=== PATIENT | female | born 1985 | race Caucasian/White ===

== ENCOUNTER → 2018-04-12 07:00 | Outpatient (CLI) | payer BC, SELFPAY ==
--- NOTE | 2018-04-12 11:48 | PFT ---
INTRODUCTION: The patient is a 32-year-old female that presents for pulmonary function testing secondary to a diagnosis of asthma. Respiratory therapy reports good patient effort. Bronchodilators were used during testing. INTERPRETATION: Forced expiration spirometry demonstrates no evidence of a large airways obstructive ventilatory defect. There was no significant response to aerosolized bronchodilators, based upon strict ATS criteria. Spirograms are of good quality and plateau normally. The respiratory flow volume loop reveals some flattening of the inspiratory limb, which could be suggestive of a variable extrathoracic obstruction, like vocal cord pathology. Body plethysmography was performed and reveals lung volumes to be within normal limits. Diffusing capacity by single breath CO is also within normal limits. IMPRESSION: Grossly normal pulmonary function testing. Some flattening of the inspiratory limb of the flow volume loop is of unclear significance. Clinical correlation is recommended.
== END ==
PROVIDERS: Family Provider Nurse Practitioner Adult Health; PCP Nurse Practitioner Adult Health; Visit Provider Internal Medicine Critical Care Medicine
DX: J45.909 Unspecified asthma, uncomplicated (principal)
CPT/HCPCS: 94060; 94726; 94729

== ENCOUNTER → 2020-01-29 | Outpatient (CLI) | payer BC, SELFPAY ==
[2020-01-29 08:05] VITALS: BMI 26.4
[2020-01-29 10:49] LABS: Absolute Lymphocyte Count 2.67 X10^3/uL (0.83-4.51); Absolute Neutrophil Count 3.5 X10^3/uL (2.0-7.7); Basophil# 0.03 X10^3/uL; Basophil% 0.4 % (0-1); Eosinophils% 1.5 % (0-5); Hematocrit 44.2 % (37-47); Lymphocyte # 2.67 X10^3/ul (4.0); Lymphocyte % 39.5 % (19-41); Mean Corp Hgb Conc 33.9 g/dL (32-36); Mean Corpuscular Hgb 30.9 pg (27.0-32.0); Mean Corpuscular Volume 91.1 fL (81-99); Mean Platelet Vol. 11.8 fl (6.2-12.0); Monocyte# 0.48 X10^3/uL; Monocyte% 7.1 % (0-10); NRBC Flagged by Analyzer 0 % (0-5); Neutrophil # 3.46 X10^3/uL (2.7-7.7); Neutrophil % 51.2 % (47-70); Platelet Count 194 K/mm3 (150-450); RBC Distribution Width CV 12.7 % (11.6-14.6); RBC Distribution Width SD 42.2 fl (35.1-43.9); Red Blood Count 4.85 M/mm3 (4.2-5.4); White Blood Count 6.8 K/mm3 (4.4-11.0)
[2020-01-31 20:07] LABS: Bermuda Grass <0.10 kU/L (Class 0); Bluegrass, Kentucky 0.24 kU/L (Class 0/I); Cat Hair/Dander, Standard 5.11 kU/L (Class IV); D farinae Mite <0.10 kU/L (Class 0); D pteronyssinus <0.10 kU/L (Class 0); Elm, American White <0.10 kU/L (Class 0); Oak, White 0.23 kU/L (Class 0/I); Plantain, English <0.10 kU/L (Class 0); Ragweed, Short/Common <0.10 kU/L (Class 0)
[2020-01-31 21:25] LABS: Mouse Urine <0.10 kU/L (Class 0)
[2020-02-01 17:39] LABS: Aspirgillus flavus Negative (Neg:<1:1); Aspirgillus fumigatus Negative (Neg:<1:1); Aspirgillus niger Negative (Neg:<1:1); Cytoplasmic Ab (C-ANCA) <1:20 titer (Neg:<1:20)
[2020-02-01 21:13] LABS: Immunoglobulin E 78 IU/mL (6-495); Perinuclear Ab (P-ANCA) <1:20 titer (Neg:<1:20)
== END | disposition home or self-care (01) ==
LOC: PAVLAB 10:28
PROVIDERS: PCP Nurse Practitioner Adult Health; Referring Provider Nurse Practitioner Acute Care; Visit Provider Nurse Practitioner Acute Care
DX: J45.909 Unspecified asthma, uncomplicated (principal); R07.89 Other chest pain
CPT/HCPCS: 36415; 82785; 85025; 86003; 86256; 86606

== ENCOUNTER → 2020-06-30 | Outpatient (CLI) | payer BC, SELFPAY ==
[2020-05-31 14:28] VITALS: BMI 26.1
== END | disposition home or self-care (01) ==
LOC: LABSPEC 17:19
PROVIDERS: Referring Provider Nurse Practitioner Acute Care; Visit Provider Nurse Practitioner Acute Care
DX: R51.9 Headache, unspecified (principal)
CPT/HCPCS: 87635; C9803; U0003